=== PATIENT | female | born 1975 | race American Indian/Alaskan Native ===

== ENCOUNTER 2017-07-14 05:29 | Day surgery (SDC) | payer OTHER ==
[~2017-07-14 05:29] MED LIST: SYNTHROID50 MCG PO
[2017-07-14] MEDS ORDERED: PERCOCET 5-3251 EACH PO (09:32)
== END 2017-07-14 11:00 | disposition home or self-care (01) ==
LOC: CIR.AMB 05:29
DX: N83.8 Other noninflammatory disorders of ovary, fallopian tube and broad ligament (principal)